=== PATIENT | female | born 1935 | race Caucasian/White ===

== ENCOUNTER → 2020-02-12 09:02 | Outpatient (BNVA) | payer MEDICARE, BC, SELFPAY | PROVIDERS: PCP Nurse Practitioner Family; Referring Provider Internal Medicine; Visit Provider Nurse Practitioner Adult Health | DX: G43.109 Migraine with aura, not intractable, without status migrainosus (principal); I10 Essential (primary) hypertension; J44.9 Chronic obstructive pulmonary disease, unspecified | CPT/HCPCS: 99204 ==

== ENCOUNTER → 2020-04-08 09:28 | Outpatient (BNVA) | payer MEDICARE, BC, SELFPAY | PROVIDERS: PCP Nurse Practitioner Family; Referring Provider Nurse Practitioner Family; Visit Provider Nurse Practitioner Adult Health | DX: G43.109 Migraine with aura, not intractable, without status migrainosus (principal) | CPT/HCPCS: 99213 ==

== ENCOUNTER → 2020-10-07 08:05 | Outpatient (BNVA) | payer MEDICARE, BC, SELFPAY | PROVIDERS: PCP Nurse Practitioner Family; Referring Provider Nurse Practitioner Family; Visit Provider Nurse Practitioner Adult Health | DX: G43.109 Migraine with aura, not intractable, without status migrainosus (principal); Z63.79 Other stressful life events affecting family and household | CPT/HCPCS: 99213; 99215 ==

== ENCOUNTER 2021-05-21 02:42 | Outpatient (CLI) | payer MEDICARE, BC, SELFPAY ==
[2021-05-21 13:21] LABS: Source Nasal/Nares
[2021-05-21 16:55] LABS: COVID-19 PCR Negative (Negative)
== END 2021-05-21 02:43 | disposition home or self-care (01) ==
LOC: LBO 02:42
PROVIDERS: PCP Internal Medicine; Visit Provider Ophthalmology
DX: Z20.822 Contact with and (suspected) exposure to COVID-19 (principal); Z01.818 Encounter for other preprocedural examination
CPT/HCPCS: 87635

== ENCOUNTER 2021-05-24 11:04 | Day surgery (SDC) | payer MEDICARE, BC, SELFPAY ==
--- NOTE | 2021-05-24 06:45 | W.PREOPHP ---
Date of service: 05/24/21 Assessment and Plan Assessment and plan (1) Cortical cataract of left eye: Status: Acute Assessment and plan: Visually significant cataract of the left eye, plan is for cataract extraction with lens implantation of the left eye. (2) Nuclear sclerotic cataract of left eye: Status: Acute Assessment and plan: Visually significant cataract of the left eye, plan is for cataract extraction with lens implantation of the left eye. History of Present Illness History of Present Illness Chief Complaint: Progressive decreased vision, left eye Narrative: Patient is an 85-year-old lady who has noted progressive decreased vision in her left eye, particularly at distance. She also has a hard time doing near work such as reading books, sewing, and using the computer. Review of Systems All systems reviewed & are unremarkable except as noted in HPI and below Musculoskeletal Musculoskeletal: Reports arthralgias and Reports joint swelling Neurologic Neurologic: Reports system reviewed and no additional complaints, except as documented Allergic/Immunologic Allergic/Immunologic: Reports system reviewed and no additional complaints, except as documented PFS Medical History Acquired hammer toe of right foot Atypical chest pain pt. says she has had full work up and states they have never found anything. Bunion Chronic sinusitis Claustrophobia Constipation Essential hypertension GERD (gastroesophageal reflux disease) Hearing loss Hx of chronic obstructive lung disease Hyperlipidemia Hypertension Incontinence of feces Insomnia Memory impairment Migraine headache with aura Obstructive sleep apnea Periodic limb movement disorder Rheumatoid arthritis Seasonal allergic rhinitis Small vessel disease, cerebrovascular Spinal stenosis, lumbar Surgical History History of orthopedic surgery Hx of breast surgery Family History Mother Heart disease Diabetes Hypertension Glaucoma Father Stroke Brother Alcohol abuse Diabetes Arthritis Liver disease Stroke Social History Smoking/Tobacco Use Status: Former Tobacco Use Quit Date: 09/04/89 Smoking risk assessment performed?: Yes Alcohol Intake: current Alcohol Intake frequency: a few times a month Drug use: Never Substance use type: does not use Household members: spouse Housing: house Number of Children: 2 What is your relationship status?: Panel score (0-1 are the most socially isolated patients): 1 Seatbelt use: always Do you feel safe at home: Yes Do you feel safe in your relationship?: Yes Meds Allergies and Home Medications Allergies Allergy/AdvReac Type Severity Reaction Status Date / Time azithromycin [From Zithromax] Allergy Intermediate Verified 05/21/21 13:43 Influenza Virus Vaccines Allergy Unverified 05/21/21 13:43 Macrolide Antibiotics Allergy Unverified 05/21/21 13:43 pneumococcal vaccine Allergy Unverified 05/21/21 13:43 Sulfa (Sulfonamide Allergy Unverified 05/21/21 13:43 Antibiotics) clindamycin AdvReac Intermediate joint pain Verified 05/21/21 13:43 lisinopril AdvReac Mild cough Verified 05/21/21 13:43 metoprolol AdvReac Wheezing Unverified 05/21/21 13:43 Home Medications Medication Instructions Recorded Confirmed Type acetaminophen [Tylenol Extra 1,000 mg PO Q4H PRN tab-cap 01/08/16 05/21/21 History Strength] amoxicillin 500 mg PO Q12H PRN tab-cap 01/08/16 05/21/21 History calcium carbonate-vitamin D3 1 ea PO DAILY tab-cap 01/08/16 05/24/21 History [Calcium 500 + D Tablet] dextran 70-hypromellose [Tears 15 ml OPHTHALMIC BID bottle 01/08/16 05/21/21 History Pure Drops] fluticasone propionate [Flonase 2 spry NS DAILY PRN bottle 01/08/16 05/21/21 History Allergy Relief] ipratropium-albuterol [Combivent 2 puff INHALATION QID PRN inhaler 01/08/16 05/21/21 History Respimat Inhaler] multivitamin [Daily Value] 1 ea PO DAILY tab 01/08/16 05/24/21 History olopatadine [Pataday] 1 drp OPHTHALMIC BID drp 01/08/16 05/21/21 History amlodipine 10 mg tablet 10 mg PO DAILY 02/10/20 05/24/21 History atorvastatin 20 mg tablet 20 mg PO DAILY 02/10/20 05/24/21 History carboxymethylcellulose 0.5 1 drp OP QHS 02/10/20 05/21/21 History %-glycerin 0.9 % eye drops clopidogrel 75 mg tablet 75 mg PO DAILY 02/10/20 05/24/21 History donepezil 5 mg tablet 5 mg PO DAILY 02/10/20 05/24/21 History gabapentin 100 mg capsule 100 mg PO DAILY PRN 02/10/20 05/24/21 History isosorbide mononitrate 60 mg 60 mg PO HS tab 02/10/20 05/24/21 History tablet,extended release 24 hr magnesium oxide 400 mg (241.3 mg 400 mg PO QHS tab 02/10/20 05/21/21 History magnesium) tablet metoprolol succinate 50 mg 50 mg PO QHS tab 02/10/20 05/24/21 History tablet,extended release 24 hr nitroglycerin 0.4 mg sublingual 0.4 mg SL Q5M PRN 02/10/20 05/21/21 History tablet sucralfate 1 gram tablet 1 gm PO DIRECTED tab 02/10/20 05/21/21 History hydroxychloroquine 200 mg tablet 200 mg PO DAILY tab-cap 10/07/20 05/24/21 History Exam Eyes General: appearance normal, both eyes and all related structures Visual Patricia: normal visual patricia by confrontation Alignment and Position: alignment normal Periorbital: periorbital findings normal Eyelids: eyelids normal Conjunctivae: conjunctivae normal Sclera: sclerae normal Cornea: corneas normal Pupils: PERRL EOM: EOM intact bilaterally Other: Slit-lamp examination reveals mild cortical opacities OU. Significant nuclear cataract is present in both eyes. Funduscopic examination reveals disc cupping of approximately 0.7 OD, 0.75 OS. Cups are deep. 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 Resp Auscultation: clear to auscultation bilaterally Cardio Rate: regular rate Rhythm: regular rhythm
--- NOTE | 2021-05-24 11:31 | ANES.PREOP_ITS ---
General Info Date of Service Date Performed: 05/24/21 Height: 5 ft 2 in Weight: 67.132 kg Body Mass Index (BMI): 27.1 Surgical Procedure: Operation Date: 05/24/21 14:40 Proposed Procedures Side Surgeon p Cataract Extraction with IOL Implant Left Luisito Samaniego MD Meds Allergies and Home Medications Allergies Allergy/AdvReac Type Severity Reaction Status Date / Time azithromycin [From Zithromax] Allergy Intermediate Verified 05/21/21 13:43 Influenza Virus Vaccines Allergy Unverified 05/21/21 13:43 Macrolide Antibiotics Allergy Unverified 05/21/21 13:43 pneumococcal vaccine Allergy Unverified 05/21/21 13:43 Sulfa (Sulfonamide Allergy Unverified 05/21/21 13:43 Antibiotics) clindamycin AdvReac Intermediate joint pain Verified 05/21/21 13:43 lisinopril AdvReac Mild cough Verified 05/21/21 13:43 metoprolol AdvReac Wheezing Unverified 05/21/21 13:43 Home Medication Medication Instructions Recorded acetaminophen [Tylenol Extra 1,000 mg PO Q4H PRN tab-cap 01/08/16 Strength] amoxicillin 500 mg PO Q12H PRN tab-cap 01/08/16 calcium carbonate-vitamin D3 1 ea PO DAILY tab-cap 01/08/16 [Calcium 500 + D Tablet] dextran 70-hypromellose [Tears 15 ml OPHTHALMIC BID bottle 01/08/16 Pure Drops] fluticasone propionate [Flonase 2 spry NS DAILY PRN bottle 01/08/16 Allergy Relief] ipratropium-albuterol [Combivent 2 puff INHALATION QID PRN inhaler 01/08/16 Respimat Inhaler] multivitamin [Daily Value] 1 ea PO DAILY tab 01/08/16 olopatadine [Pataday] 1 drp OPHTHALMIC BID drp 01/08/16 amlodipine 10 mg tablet 10 mg PO DAILY 02/10/20 atorvastatin 20 mg tablet 20 mg PO DAILY 02/10/20 carboxymethylcellulose 0.5 1 drp OP QHS 02/10/20 %-glycerin 0.9 % eye drops clopidogrel 75 mg tablet 75 mg PO DAILY 02/10/20 donepezil 5 mg tablet 5 mg PO DAILY 02/10/20 gabapentin 100 mg capsule 100 mg PO DAILY PRN 02/10/20 isosorbide mononitrate 60 mg 60 mg PO HS tab 02/10/20 tablet,extended release 24 hr magnesium oxide 400 mg (241.3 mg 400 mg PO QHS tab 02/10/20 magnesium) tablet metoprolol succinate 50 mg 50 mg PO QHS tab 02/10/20 tablet,extended release 24 hr nitroglycerin 0.4 mg sublingual 0.4 mg SL Q5M PRN 02/10/20 tablet sucralfate 1 gram tablet 1 gm PO DIRECTED tab 02/10/20 hydroxychloroquine 200 mg tablet 200 mg PO DAILY tab-cap 10/07/20 Current Visit Medications: Current Medications Generic Name Dose Route Start Last Admin Trade Name Freq PRN Reason Stop Dose Admin Acetaminophen 1,000 mg 05/24/21 06:00 Acetaminophen 500 Mg Tab PO Q4H PRN PRN Miscellaneous Medication 0 ml 05/24/21 06:00 Prednisolone 1%, Moxifloxacin 0.5%, Nepafenac 0.1% 5ml Btl OS DIRECTED [facility] Miscellaneous Medication 0 ml 05/24/21 06:00 Tropicam./Phenyleph. (1/2.5%) 5 Ml Btl OS DIRECTED CHRIS Tetracaine HCl 0 ml 05/24/21 06:00 Tetracaine 0.5% 4 Ml Btl OS DIRECTED CHRIS PFSH Active Problems Active Problems: Problem Status Onset Code Cortical cataract of left eye H26.9 Nuclear sclerotic cataract of left eye H25.12 Migraine headache with aura G43.109 Medical History Medical History Acquired hammer toe of right foot Atypical chest pain pt. says she has had full work up and states they have never found anything. Bunion Chronic sinusitis Claustrophobia Constipation Essential hypertension GERD (gastroesophageal reflux disease) Hearing loss Hx of chronic obstructive lung disease Hyperlipidemia Hypertension Incontinence of feces Insomnia Memory impairment Migraine headache with aura Obstructive sleep apnea Periodic limb movement disorder Rheumatoid arthritis Seasonal allergic rhinitis Small vessel disease, cerebrovascular Spinal stenosis, lumbar Surgical History Surgical History History of orthopedic surgery Hx of breast surgery Tobacco Smoking/Tobacco Use Status: Former Tobacco Use Alcohol Alcohol Intake: current Alcohol intake frequency: a few times a month Substance Use Substance use: Never Substance use type: does not use Vital Signs and Lab Results Lab Results Blood Type / Crossmatch: No Data to Display Complete Blood Count: No Data to Display Complete Metabolic Panel: No Data to Display Liver Function Panel: No Data to Display Coagulation Panel: No Data to Display Cardiac Panel: No Data to Display Arterial Blood Gas: No Data to Display Venous Blood Gas: No Data to Display Pancreas Panel: No Data to Display Thyroid Panel: No Data to Display Infectious Disease: Coronavirus (COVID-19)(PCR) Negative (Negative) 05/21/21 11:24 05/21/21 Coronavirus 2019 Source Nasal/Nares 05/21/21 11:24 05/21/21 Blood Cultures: No Data to Display Toxicology Panel: No Data to Display Imaging and Studies Imaging and Studies Stress Test Summary: 01/21/16 Stress results: The rate-pressure product for the peak heart rate and blood pressure was 25025dl Hg/min. Stress ECG: STRESS TEST ENDED IN 6 MINUTES & 1 SECOND, BECAUSE OF PT FATIGUE. MAX HR = 136. % OF TARGET = 96. PVC, COUPLET & 3 BEAT RUN SEEN DURING PEAK EXERCISE. ADEQUATE BP RESPONSE. ABOVE AVERAGE EXERCISE CAPACITY. METS ACHIEVED 8.82. CHEST PAINS 3/4 OUT OF 10 TO 6 OUT OF 10 DURING PEAK EXERCISE, THAT SUBSIDED BY 6 MINUTE RECOVERY. Beasley treadmill score: 6. This score predicts a low risk of cardiac events. Anesthesia Assessment and Plan Anesthesia History Personal History: No History of Anesthesia Complications Family History: No Family History of Anesthesia Complications Exercise Tolerance Exercise Tolerance: Metabolic Equivalents>4 Pertinent Negatives Pertinent Negatives: No Symptoms of GERD, No Major Cardiovascular Symptoms or Complaints, No Major Pulmonary Symptoms or Complaints and No History of CVA/TIA Cardiac & Pulmonary Exam Cardiac Exam: Normal S1/S2 Heart Sounds Pulmonary Exam: Clear Bilateral Breath Sounds Airway Exam Known Difficult Airway: No Mallampati Class: 2 Mouth Opening: Normal (> 3cm) Thyromental Distance: Greater than 3 cm Neck Range of Motion: Full ROM Neck Circumference: Normal Teeth Condition: Normal Dentition, Removable Dentures/Plates Upper and Removable Dentures/Plates Lower ASA Classification ASA Score: ASA 2 Emergency Case?: No NPO Status NPO Status: NPO Clears >2 hours, Solids >8 hours Anesthesia Plan Resuscitation Status: Full Code Anesthesia Technique: MAC Anesthesia Airway Planned: Natural Airway Monitors Used: Standard Monitors
[2021-05-24 11:38] VITALS: BP 140/58; PULSE 61; RESP 16; TEMP 36.7; O2SAT 98
[2021-05-24 11:52] VITALS: BMI 27.1
[2021-05-24] MEDS: Tropicam./Phenyleph. (1/2.5%) 5 ML BTL OS ×3 (11:58→12:08)
[2021-05-24] MEDS: Tetracaine 0.5% 4 ML BTL OS (12:44)
[2021-05-24] MEDS: Duovisc Viscoelastic System EACH 1 EACH (12:45)
[2021-05-24] MEDS: Balanced Salt Soln.-PLUS 500 ML BAG (12:45)
[2021-05-24] MEDS: Lidocaine 2% Jelly 6 ML SYR (12:46)
[2021-05-24] MEDS: Lidocaine 1% Pres-Free 5 ML VIAL (12:46)
[2021-05-24] MEDS: Povidone-Iodine Ophth 30 ML BTL (12:47)
[2021-05-24 13:12] VITALS: BP 156/79; PULSE 66; RESP 16; TEMP 36; O2SAT 97
--- NOTE | 2021-05-24 13:13 | W.ANESPOSTOP ---
Postoperative Evaluation Date, Time and Location Date Performed: 05/24/21 Time Performed: 13:13 Patient Location: Day Surgery Unit Vital Signs Most Recent Imported Vital Signs: Most Recent Vital Signs Temp Pulse Resp BP Pulse Ox 36.7 C 61 16 140/58 L 98 05/24/21 11:38 05/24/21 11:38 05/24/21 11:38 05/24/21 11:38 05/24/21 11:38 Most Recent Manually Entered Vital Signs: Adult Blood Pressure: 156/79 Heart Rate: 66 Respirations: 16 Oxygen Saturation (%): 97 Temperature (C): 36.4 C Pain Score (0-10 Scale): 0 Pain Score Most Recent Pain Score: Most Recent Pain Score Pain Level 0 05/24/21 11:38 Assessment Mental Status: Awake (Alert & Oriented to Patient Baseline) Airway and Respiratory Function: Patent airway with normal (patient baseline) respiratory exam Cardiovascular Function: Hemodynamically Stable Hydration Status: Adequately Hydrated Nausea & Vomiting: No Nausea or Vomiting Pain: Pt. Denies Any Pain Peripheral Nerve Block: Patient did not receive a nerve block
[2021-05-24 13:14] VITALS: BP 156/79; PULSE 66; RESP 16; TEMPC 36.4; O2SAT 97
--- NOTE | 2021-05-24 13:15 | W.PM.DSUDISC ---
Discharge Plan Disposition Patient Disposition: HOME Condition: Good Discharge Details Attending Provider: Luisito Samaniego Primary Care Provider: Carlos Zuñiga Home Meds and New Rx's Prescriptions: No Action multivitamin [Daily Value] 1 EACH tablet 1 ea PO DAILY RF: 0 acetaminophen [Tylenol Extra Strength] 500 MG tablet 1,000 mg PO Q4H PRN RF: 0 amoxicillin 500 MG tablet 500 mg PO Q12H PRNRF: 0 fluticasone propionate [Flonase Allergy Relief] 9.9 ML spray,suspension 2 spry NS DAILY PRNRF: 0 Tears Pure 15 ML drops 15 ml Ophthalmic BID RF: 0 olopatadine [Pataday] 2.5 ML drops 1 drp Ophthalmic BID RF: 0 calcium carbonate-vitamin D3 [Calcium 500 + D] 1 EACH tablet 1 ea PO DAILY RF: 0 Combivent Respimat 4 GM mist 2 puff Inhalation QID PRNRF: 0 amlodipine 10 mg tablet 10 mg PO DAILY RF: 0 atorvastatin 20 mg tablet 20 mg PO DAILY RF: 0 donepezil 5 mg tablet 5 mg PO DAILY RF: 0 gabapentin 100 mg capsule 100 mg PO DAILY PRNRF: 0 isosorbide mononitrate 60 mg tablet extended release 24 hr 60 mg PO HS RF: 0 magnesium oxide 400 mg (241.3 mg magnesium) tablet 400 mg PO QHS RF: 0 metoprolol succinate 50 mg tablet extended release 24 hr 50 mg PO QHS RF: 0 nitroglycerin 0.4 mg tablet, sublingual 0.4 mg SL Q5M PRNRF: 0 clopidogrel [Plavix] 75 mg tablet 75 mg PO DAILY RF: 0 Refresh Optive 0.5-0.9 % drops 1 drp OP QHS RF: 0 sucralfate 1 gram tablet 1 gm PO DIRECTED RF: 0 hydroxychloroquine [Plaquenil] 200 mg tablet 200 mg PO DAILY RF: 0 Discharge Instructions Stand Alone Forms: Post-op Topical Cataract Discharge Orders Discharge Orders: Discharge Order (Routine); Ordered 05/24/21 Ordered By: Luisito Samaniego DS: Diagnosis Discharge Diagnosis (1) Cortical cataract of left eye: Status: Resolved (2) Nuclear sclerotic cataract of left eye: Status: Resolved
--- NOTE | 2021-05-24 13:15 | W.PM.OP ---
Date of service: 05/24/21 Time of Service: 13:15 Operative Note Operative Note DATE OF PROCEDURE: 05/24/21 PRE-OP DIAGNOSIS: Nuclear/cortical cataract, left eye POST-OP DIAGNOSIS: same PROCEDURE: Cataract extraction by phacoemulsification with intraocular lens implantation, left eye, with pupillary expansion device SURGEON: Luisito Samaniego ANESTHESIA TYPE: Local By Surgeon and MAC Refer to Anesthesia Record ESTIMATED BLOOD LOSS: 0 PATHOLOGY: none sent COMPLICATIONS: None Patient was transported to: same day Patient's condition: stable Implants: [employer] / [employer] Tecnis [id number] Indications: Progressive decreased vision, left eye Procedure Description: CATARACT SURGERY OPERATIVE REPORT PREOPERATIVE DIAGNOSIS: 1. Nuclear/cortical cataract, left eye 2. Poorly dilating pupil, left eye POSTOPERATIVE DIAGNOSIS: Same OPERATION: 1. Cataract extraction using phacoemulsification with posterior chamber intraocular lens implant, left eye. 2. Pupillary dilation and iris stabilization using Malyugin Ring IOL; IOL Licensed Marine Engineer/Model: [employer] Silv[employer] / DAYO Tecnis [id number] IOL Power: + 23.0 diopters IOL Serial Number: [id number] Optic Diameter: 6.0 mm Haptic/Overall Diameter: 13.00 mm PHACO INFO: [employer] Vision System with OZil and Active [employer]uidics Cumulative Dispersed Energy (CDE): 16.47 seconds SURGEON: Luisito Samaniego MD, LILY ANESTHESIA: Monitored Anesthesia Care (MAC), with local sub-tenon's anesthetic infiltration COMPLICATIONS: None SPECIMENS: None INDICATIONS FOR PROCEDURE: The patient is an 86-year-old lady with history of diminished visual acuity in both eyes secondary to the development of bilateral nuclear and cortical cataract. She is significantly symptomatic that she desires cataract surgery and attempt to improve and maximize her vision. PROCEDURE: The correct surgical eye was identified and marked as the left eye and the pupil was dilated in the preoperative area using mydriatics, cycloplegics, and NSAIDS (except in aspirin allergic patients). The dilated pupil size was 4.5 mm. Oral sedation was administered in the form of an Imprimis MKO Melt (midazolam 3mg/ketamine 25mg/ondansetron 2mg). The patient was brought to the operating room where cardiopulmonary monitoring was instituted and surgical time-out was performed, confirming the correct operative eye and IOL power. Topical anesthesia was administered and ophthalmic povidone-iodine 5% was instilled into the conjunctival fornices. Lidocaine gel was applied to the cornea and the mickey-ocular area was prepped with Betadine 10% solution and draped in the usual sterile fashion for intraocular surgery, including an aperture drape. A Tegaderm transparent film dressing was cut in half and used to cover the lashes and lid margins. Care was taken to sequester the lashes and lid margins under the Tegaderm dressing. A lid speculum was placed between the lids of the operative eye and the Anne-Flora operating microscope was maneuvered into position. Missy scissors were then used to make a conjunctival buttonhole approximately 6mm posterior to the limbus in the inferonasal quadrant. Blunt dissection was carried out to expose bare sclera, and a blunt-tipped sub-tenon?s anesthesia cannula was introduced and passed posteriorly along the globe where non-preserved plain lidocaine was injected into posterior sub-Tenon?s space. A sideport knife was used to make a paracentesis port superiorly/superiortemporally. Intraocular phenylephrine/lidocaine was injected into the anterior chamber. The anterior chamber was then filled with viscoelastic. A 2.4mm keratome knife was used to create a half-thickness groove at the limbus and then to construct a three-plane near-clear corneal tunnel extending 2.0mm into clear cornea at the temporal position. A 7.0 mm Malyugin Ring was then inserted into the pupillary space and engaged with the Kuglen hook. A flap was raised on the anterior capsule and capsulorhexis forceps were used to complete a continuous curvilinear capsulorhexis of 5.5 mm. Balanced salt solution was then used to perform cortical cleaving hydrodissection and nuclear hydrodelineation until the lens could be freely rotated within the capsular bag. The lens nucleus was then disassembled and removed within the capsular bag and iris plane using phacoemulsification. Residual cortical material was removed using the 45-degree angled silicone I/A tip with 0.3mm port. The posterior capsule was carefully polished to remove as much residual lens epithelial cells as safely possible. The capsular bag was then inflated and the anterior chamber deepened with viscoelastic. The lens implant described above was inserted into the capsular bag using the DAYO [place] Injector. A Kuglen hook was used to dial the IOL into position. The Malyugin Ring was removed in the reverse order of its insertion. Residual viscoelastic was then removed first from posterior to the IOL, then from the anterior chamber using the I/A handpiece. The lens implant was noted to center nicely within the capsular bag. The incisions were stromally hydrated, and the anterior chamber was reformed using BSS. Then 0.5cc of moxifloxacin 1.0mg/ml were injected into the capsular bag and anterior chamber. The incisions were checked with a Weck spear and found to be secure. Several drops of ophthalmic povidone-iodine 5% were then applied to the eye followed by two drops of Imprimis combination prednisolone/moxifloxacin/nepafenac solution. The drapes were removed and a clear plastic protective eye shield was placed over the eye. The patient was then returned to Same Day Surgery in stable condition.
== END 2021-05-24 13:40 | disposition home or self-care (01) ==
PROVIDERS: PCP Internal Medicine; Visit Provider Ophthalmology
PROC: (CPT 66982; principal; 2021-05-24 14:30)
DX: H25.12 Age-related nuclear cataract, left eye (principal); H57.03 Miosis
CPT/HCPCS: 66982; V2632

== ENCOUNTER 2021-06-04 01:58 | Outpatient (CLI) | payer MEDICARE, BC, SELFPAY ==
[2021-06-04 12:50] LABS: Source Nasal/Nares
[2021-06-04 15:32] LABS: COVID-19 PCR Negative (Negative)
== END 2021-06-04 01:59 | disposition home or self-care (01) ==
LOC: LBO 01:59
PROVIDERS: PCP Internal Medicine; Visit Provider Ophthalmology
DX: Z20.822 Contact with and (suspected) exposure to COVID-19 (principal); Z01.818 Encounter for other preprocedural examination
CPT/HCPCS: 87635

== ENCOUNTER 2021-06-07 10:30 | Day surgery (SDC) | payer MEDICARE, BC, SELFPAY ==
--- NOTE | 2021-06-07 06:59 | W.PIPPEYE ---
History of Present Illness History of Present Illness Chief Complaint: Progressive decreased vision, right eye Narrative: The patient is an 85-year-old lady with history of progressive decreased vision in both eyes, left eye worse than right. She has a history of bilateral cataracts, left eye worse than right as well as borderline glaucoma. She underwent cataract surgery in the left eye on 05/24/2021. She now presents for cataract surgery in the right eye. COUNT INCLUDES THE [facility] Medical History (Updated 06/05/21 @ 10:21 by Luisito Samaniego MD) Acquired hammer toe of right foot Atypical chest pain pt. says she has had full work up and states they have never found anything. Bunion Chronic sinusitis Claustrophobia Constipation Essential hypertension GERD (gastroesophageal reflux disease) Hearing loss Hx of chronic obstructive lung disease Hyperlipidemia Hypertension Incontinence of feces Insomnia Memory impairment Migraine headache with aura Obstructive sleep apnea Periodic limb movement disorder Rheumatoid arthritis Seasonal allergic rhinitis Small vessel disease, cerebrovascular Spinal stenosis, lumbar Surgical History History of orthopedic surgery Hx of breast surgery Family History Mother Heart disease Diabetes Hypertension Glaucoma Father Stroke Brother Alcohol abuse Diabetes Arthritis Liver disease Stroke Social History Smoking/Tobacco Use Status: Former Tobacco Use Quit Date: 09/04/89 Smoking risk assessment performed?: Yes Alcohol Intake: current Alcohol Intake frequency: a few times a month Drug use: Never Substance use type: does not use Household members: spouse Housing: house Number of Children: 2 What is your relationship status?: Panel score (0-1 are the most socially isolated patients): 1 Seatbelt use: always Do you feel safe at home: Yes Do you feel safe in your relationship?: Yes Meds Allergies and Home Medications Allergies Allergy/AdvReac Type Severity Reaction Status Date / Time azithromycin [From Zithromax] Allergy Intermediate Verified 06/04/21 07:27 Influenza Virus Vaccines Allergy Unverified 06/04/21 07:27 Macrolide Antibiotics Allergy Unverified 06/04/21 07:27 pneumococcal vaccine Allergy Unverified 06/04/21 07:27 Sulfa (Sulfonamide Allergy Unverified 06/04/21 07:27 Antibiotics) clindamycin AdvReac Intermediate joint pain Verified 06/04/21 07:27 lisinopril AdvReac Mild cough Verified 06/04/21 07:27 metoprolol AdvReac Wheezing Unverified 06/04/21 07:27 Home Medications Medication Instructions Recorded Confirmed Type acetaminophen [Tylenol Extra 1,000 mg PO Q4H PRN tab-cap 01/08/16 06/03/21 History Strength] amoxicillin 500 mg PO Q12H PRN tab-cap 01/08/16 06/03/21 History calcium carbonate-vitamin D3 1 ea PO DAILY tab-cap 01/08/16 06/03/21 History [Calcium 500 + D Tablet] dextran 70-hypromellose [Tears 15 ml OPHTHALMIC BID bottle 01/08/16 06/03/21 History Pure Drops] fluticasone propionate [Flonase 2 spry NS DAILY PRN bottle 01/08/16 06/03/21 History Allergy Relief] ipratropium-albuterol [Combivent 2 puff INHALATION QID PRN inhaler 01/08/16 06/03/21 History Respimat Inhaler] multivitamin [Daily Value] 1 ea PO DAILY tab 01/08/16 06/03/21 History olopatadine [Pataday] 1 drp OPHTHALMIC BID drp 01/08/16 06/03/21 History amlodipine 10 mg tablet 10 mg PO DAILY 02/10/20 06/03/21 History atorvastatin 20 mg tablet 20 mg PO DAILY 02/10/20 06/03/21 History carboxymethylcellulose 0.5 1 drp OP QHS 02/10/20 06/03/21 History %-glycerin 0.9 % eye drops clopidogrel 75 mg tablet 75 mg PO DAILY 02/10/20 06/03/21 History donepezil 5 mg tablet 5 mg PO DAILY 02/10/20 06/03/21 History gabapentin 100 mg capsule 100 mg PO DAILY PRN 02/10/20 06/03/21 History isosorbide mononitrate 60 mg 60 mg PO HS tab 02/10/20 06/03/21 History tablet,extended release 24 hr magnesium oxide 400 mg (241.3 mg 400 mg PO QHS tab 02/10/20 06/03/21 History magnesium) tablet metoprolol succinate 50 mg 50 mg PO QHS tab 02/10/20 06/03/21 History tablet,extended release 24 hr nitroglycerin 0.4 mg sublingual 0.4 mg SL Q5M PRN 02/10/20 06/03/21 History tablet sucralfate 1 gram tablet 1 gm PO DIRECTED tab 02/10/20 06/03/21 History hydroxychloroquine 200 mg tablet 200 mg PO DAILY tab-cap 10/07/20 06/03/21 History Exam OCULAR EXAM:: Slit-lamp examination reveals corrected visual acuity of 20/30 OD, uncorrected vision of 20/20 OS. A well-positioned PCIOL is present OS with clear posterior capsule and a clear cornea. A moderate nuclear and cortical cataract is present in the right eye. Disc cupping of 0.7 OU. The macula and peripheral retina are normal. Assessment and Plan Assessment and plan (1) Cortical cataract of right eye: Status: Acute Assessment and plan: Visually symptomatic cortical cataract of the right eye. Plan is for cataract extraction with lens implantation of the right eye. (2) Nuclear sclerotic cataract of right eye: Status: Acute Assessment and plan: Visually symptomatic nuclear cataract of the right eye. Plan is for cataract extraction with lens implantation of the right eye. Note: NOTE:: The details of the planned surgery, including the risks, indications,limitations,expectations,outcome and possible complications were explained to the patient. The patient understands the complications including, but not limited to: infection, hemorrhage, posterior dislocation of the lens or nuclear fragments which may require the intervention of a vitreoretinal surgeon, possible loss of the eye, or from anesthetic complications. The patient has been made aware of the option of not having surgery, that vision following surgery may not be equal to that prior to surgery, and that the planned surgery may not achieve the intended results. Following this discussion, which the patient appeared to understand, the patient wishes to proceed with cataract surgery with lens implantation of the affected eye to improve and maximize vision.
--- NOTE | 2021-06-07 07:05 | W.PREOPHP ---
Date of service: 06/07/21 Assessment and Plan Assessment and plan (1) Cortical cataract of right eye: Status: Acute Assessment and plan: Symptomatic cortical cataract of the right eye. Plan is for cataract extraction with lens implantation of the right eye. (2) Nuclear sclerotic cataract of right eye: Status: Acute Assessment and plan: Symptomatic nuclear cataract of the right eye. Plan is for cataract extraction with lens implantation of the right eye. History of Present Illness History of Present Illness Chief Complaint: Decreased vision, right eye Narrative: The patient is an 85-year-old lady with history of progressive decreased vision in both eyes, left eye worse than right. She is noted to have moderate bilateral nuclear and cortical cataracts. She has already undergone cataract surgery in the left eye on 05/24/2021 and is doing well postoperatively. She now presents for cataract surgery in the left eye. [facility] Medical History (Updated 06/05/21 @ 10:21 by Luisito Samaniego MD) Acquired hammer toe of right foot Atypical chest pain pt. says she has had full work up and states they have never found anything. Bunion Chronic sinusitis Claustrophobia Constipation Essential hypertension GERD (gastroesophageal reflux disease) Hearing loss Hx of chronic obstructive lung disease Hyperlipidemia Hypertension Incontinence of feces Insomnia Memory impairment Migraine headache with aura Obstructive sleep apnea Periodic limb movement disorder Rheumatoid arthritis Seasonal allergic rhinitis Small vessel disease, cerebrovascular Spinal stenosis, lumbar Surgical History History of orthopedic surgery Hx of breast surgery Family History Mother Heart disease Diabetes Hypertension Glaucoma Father Stroke Brother Alcohol abuse Diabetes Arthritis Liver disease Stroke Social History Smoking/Tobacco Use Status: Former Tobacco Use Quit Date: 09/04/89 Smoking risk assessment performed?: Yes Alcohol Intake: current Alcohol Intake frequency: a few times a month Drug use: Never Substance use type: does not use Household members: spouse Housing: house Number of Children: 2 What is your relationship status?: Panel score (0-1 are the most socially isolated patients): 1 Seatbelt use: always Do you feel safe at home: Yes Do you feel safe in your relationship?: Yes Meds Allergies and Home Medications Allergies Allergy/AdvReac Type Severity Reaction Status Date / Time azithromycin [From Zithromax] Allergy Intermediate Verified 06/04/21 07:27 Influenza Virus Vaccines Allergy Unverified 06/04/21 07:27 Macrolide Antibiotics Allergy Unverified 06/04/21 07:27 pneumococcal vaccine Allergy Unverified 06/04/21 07:27 Sulfa (Sulfonamide Allergy Unverified 06/04/21 07:27 Antibiotics) clindamycin AdvReac Intermediate joint pain Verified 06/04/21 07:27 lisinopril AdvReac Mild cough Verified 06/04/21 07:27 metoprolol AdvReac Wheezing Unverified 06/04/21 07:27 Home Medications Medication Instructions Recorded Confirmed Type acetaminophen [Tylenol Extra 1,000 mg PO Q4H PRN tab-cap 01/08/16 06/03/21 History Strength] amoxicillin 500 mg PO Q12H PRN tab-cap 01/08/16 06/03/21 History calcium carbonate-vitamin D3 1 ea PO DAILY tab-cap 01/08/16 06/03/21 History [Calcium 500 + D Tablet] dextran 70-hypromellose [Tears 15 ml OPHTHALMIC BID bottle 01/08/16 06/03/21 History Pure Drops] fluticasone propionate [Flonase 2 spry NS DAILY PRN bottle 01/08/16 06/03/21 History Allergy Relief] ipratropium-albuterol [Combivent 2 puff INHALATION QID PRN inhaler 01/08/16 06/03/21 History Respimat Inhaler] multivitamin [Daily Value] 1 ea PO DAILY tab 01/08/16 06/03/21 History olopatadine [Pataday] 1 drp OPHTHALMIC BID drp 01/08/16 06/03/21 History amlodipine 10 mg tablet 10 mg PO DAILY 02/10/20 06/03/21 History atorvastatin 20 mg tablet 20 mg PO DAILY 02/10/20 06/03/21 History carboxymethylcellulose 0.5 1 drp OP QHS 02/10/20 06/03/21 History %-glycerin 0.9 % eye drops clopidogrel 75 mg tablet 75 mg PO DAILY 02/10/20 06/03/21 History donepezil 5 mg tablet 5 mg PO DAILY 02/10/20 06/03/21 History gabapentin 100 mg capsule 100 mg PO DAILY PRN 02/10/20 06/03/21 History isosorbide mononitrate 60 mg 60 mg PO HS tab 02/10/20 06/03/21 History tablet,extended release 24 hr magnesium oxide 400 mg (241.3 mg 400 mg PO QHS tab 02/10/20 06/03/21 History magnesium) tablet metoprolol succinate 50 mg 50 mg PO QHS tab 02/10/20 06/03/21 History tablet,extended release 24 hr nitroglycerin 0.4 mg sublingual 0.4 mg SL Q5M PRN 02/10/20 06/03/21 History tablet sucralfate 1 gram tablet 1 gm PO DIRECTED tab 02/10/20 06/03/21 History hydroxychloroquine 200 mg tablet 200 mg PO DAILY tab-cap 10/07/20 06/03/21 History Exam Eyes Other: Corrected visual acuity measures 20/30 in the right eye. Uncorrected visual acuity is 2020 in the left eye. Slit-lamp examination reveals moderate cortical with significant nuclear cataract of the right eye. A well-positioned PCIOL is present OS with clear cornea and posterior capsule. Disc cupping is approximately 0.7 OU with normal macula and peripheral retina. Resp Effort & Inspection: normal respiratory effort Auscultation: clear to auscultation bilaterally Cardio Rate: regular rate Rhythm: regular rhythm
[2021-06-07 10:49] VITALS: BP 140/65; PULSE 68; RESP 16; TEMP 36.6; O2SAT 98
[2021-06-07] MEDS: Tropicam./Phenyleph. (1/2.5%) 5 ML BTL OD ×3 (11:02→11:12)
--- NOTE | 2021-06-07 11:21 | ANES.PREOP_ITS ---
General Info Date of Service Date Performed: 06/07/21 Height: 5 ft 2 in Weight: 66 kg Body Mass Index (BMI): 26.6 Surgical Procedure: Operation Date: 06/07/21 13:40 Proposed Procedures Side Surgeon p Cataract Extraction with IOL Implant Right Luisito Samaniego MD Meds Allergies and Home Medications Allergies Allergy/AdvReac Type Severity Reaction Status Date / Time azithromycin [From Zithromax] Allergy Intermediate Verified 06/04/21 07:27 Influenza Virus Vaccines Allergy Unverified 06/04/21 07:27 Macrolide Antibiotics Allergy Unverified 06/04/21 07:27 pneumococcal vaccine Allergy Unverified 06/04/21 07:27 Sulfa (Sulfonamide Allergy Unverified 06/04/21 07:27 Antibiotics) clindamycin AdvReac Intermediate joint pain Verified 06/04/21 07:27 lisinopril AdvReac Mild cough Verified 06/04/21 07:27 metoprolol AdvReac Wheezing Unverified 06/04/21 07:27 Home Medication Medication Instructions Recorded acetaminophen [Tylenol Extra 1,000 mg PO Q4H PRN tab-cap 01/08/16 Strength] amoxicillin 500 mg PO Q12H PRN tab-cap 01/08/16 calcium carbonate-vitamin D3 1 ea PO DAILY tab-cap 01/08/16 [Calcium 500 + D Tablet] dextran 70-hypromellose [Tears 15 ml OPHTHALMIC BID bottle 01/08/16 Pure Drops] fluticasone propionate [Flonase 2 spry NS DAILY PRN bottle 01/08/16 Allergy Relief] ipratropium-albuterol [Combivent 2 puff INHALATION QID PRN inhaler 01/08/16 Respimat Inhaler] multivitamin [Daily Value] 1 ea PO DAILY tab 01/08/16 olopatadine [Pataday] 1 drp OPHTHALMIC BID drp 01/08/16 amlodipine 10 mg tablet 10 mg PO DAILY 02/10/20 atorvastatin 20 mg tablet 20 mg PO DAILY 02/10/20 carboxymethylcellulose 0.5 1 drp OP QHS 02/10/20 %-glycerin 0.9 % eye drops clopidogrel 75 mg tablet 75 mg PO DAILY 02/10/20 donepezil 5 mg tablet 5 mg PO DAILY 02/10/20 gabapentin 100 mg capsule 100 mg PO DAILY PRN 02/10/20 isosorbide mononitrate 60 mg 60 mg PO HS tab 02/10/20 tablet,extended release 24 hr magnesium oxide 400 mg (241.3 mg 400 mg PO QHS tab 02/10/20 magnesium) tablet metoprolol succinate 50 mg 50 mg PO QHS tab 02/10/20 tablet,extended release 24 hr nitroglycerin 0.4 mg sublingual 0.4 mg SL Q5M PRN 02/10/20 tablet sucralfate 1 gram tablet 1 gm PO DIRECTED tab 02/10/20 hydroxychloroquine 200 mg tablet 200 mg PO DAILY tab-cap 10/07/20 Current Visit Medications: Current Medications Generic Name Dose Route Start Last Admin Trade Name Freq PRN Reason Stop Dose Admin Acetaminophen 1,000 mg 06/07/21 06:00 Acetaminophen 500 Mg Tab PO Q4H PRN PRN Miscellaneous Medication 0 ml 06/07/21 06:00 Prednisolone 1%, Moxifloxacin 0.5%, Nepafenac 0.1% 5ml Btl OD DIRECTED [facility] Miscellaneous Medication 0 ml 06/07/21 06:00 06/07/21 11:12 Tropicam./Phenyleph. (1/2.5%) 5 Ml Btl OD 1 drp DIRECTED CHRIS Administration Tetracaine HCl 0 ml 06/07/21 06:00 Tetracaine 0.5% 4 Ml Btl OD DIRECTED CHRIS PFSH Active Problems Active Problems: Problem Status Onset Code Cortical cataract of right eye H26.9 Nuclear sclerotic cataract of right eye H25.11 Cortical cataract of left eye H26.9 Nuclear sclerotic cataract of left eye H25.12 Migraine headache with aura G43.109 Medical History Medical History (Updated 06/05/21 @ 10:21 by Luisito Samaniego MD) Acquired hammer toe of right foot Atypical chest pain pt. says she has had full work up and states they have never found anything. Bunion Chronic sinusitis Claustrophobia Constipation Essential hypertension GERD (gastroesophageal reflux disease) Hearing loss Hx of chronic obstructive lung disease Hyperlipidemia Hypertension Incontinence of feces Insomnia Memory impairment Migraine headache with aura Obstructive sleep apnea Periodic limb movement disorder Rheumatoid arthritis Seasonal allergic rhinitis Small vessel disease, cerebrovascular Spinal stenosis, lumbar Surgical History Surgical History History of orthopedic surgery Hx of breast surgery Tobacco Smoking/Tobacco Use Status: Former Tobacco Use Alcohol Alcohol Intake: current Alcohol intake frequency: a few times a month Substance Use Substance use: Never Substance use type: does not use Vital Signs and Lab Results Vital Signs Most Recent Vital Signs in EMR: Most Recent Vital Signs Temp Pulse Resp BP Pulse Ox 36.6 C 68 16 140/65 98 06/07/21 10:49 06/07/21 10:49 06/07/21 10:49 06/07/21 10:49 06/07/21 10:49 Lab Results Blood Type / Crossmatch: No Data to Display Complete Blood Count: No Data to Display Complete Metabolic Panel: No Data to Display Liver Function Panel: No Data to Display Coagulation Panel: No Data to Display Cardiac Panel: No Data to Display Arterial Blood Gas: No Data to Display Venous Blood Gas: No Data to Display Pancreas Panel: No Data to Display Thyroid Panel: No Data to Display Infectious Disease: Coronavirus (COVID-19)(PCR) Negative (Negative) 06/04/21 10:35 06/04/21 Coronavirus 2019 Source Nasal/Nares 06/04/21 10:35 06/04/21 Blood Cultures: No Data to Display Toxicology Panel: No Data to Display Imaging and Studies Imaging and Studies Stress Test Summary: 01/21/16 Stress results: The rate-pressure product for the peak heart rate and blood pressure was 32035oq Hg/min. Stress ECG: STRESS TEST ENDED IN 6 MINUTES & 1 SECOND, BECAUSE OF PT FATIGUE. MAX HR = 136. % OF TARGET = 96. PVC, COUPLET & 3 BEAT RUN SEEN DURING PEAK EXERCISE. ADEQUATE BP RESPONSE. ABOVE AVERAGE EXERCISE CAPACITY. METS ACHIEVED 8.82. CHEST PAINS 3/4 OUT OF 10 TO 6 OUT OF 10 DURING PEAK EXERCISE, THAT SUBSIDED BY 6 MINUTE RECOVERY. Beasley treadmill score: 6. This score predicts a low risk of cardiac events. Anesthesia Assessment and Plan Anesthesia History Personal History: No History of Anesthesia Complications Family History: No Family History of Anesthesia Complications Exercise Tolerance Exercise Tolerance: Metabolic Equivalents>4 Pertinent Negatives Pertinent Negatives: No Symptoms of GERD and No Major Pulmonary Symptoms or Complaints Cardiac & Pulmonary Exam Cardiac Exam: Normal S1/S2 Heart Sounds Pulmonary Exam: Clear Bilateral Breath Sounds Airway Exam Known Difficult Airway: No Mallampati Class: 2 Mouth Opening: Normal (> 3cm) Thyromental Distance: Greater than 3 cm Neck Range of Motion: Full ROM Neck Circumference: Normal Teeth Condition: Normal Dentition, Removable Dentures/Plates Upper and Removable Dentures/Plates Lower ASA Classification ASA Score: ASA 3 Emergency Case?: No NPO Status NPO Status: NPO Clears >2 hours, Solids >8 hours Anesthesia Plan Resuscitation Status: Full Code Anesthesia Technique: MAC Anesthesia Airway Planned: Natural Airway Monitors Used: Standard Monitors
[2021-06-07 11:33] VITALS: BMI 26.6
[2021-06-07] MEDS: Tetracaine 0.5% 4 ML BTL OD (11:59)
[2021-06-07] MEDS: Balanced Salt Soln.-PLUS 500 ML BAG (12:00)
[2021-06-07] MEDS: Lidocaine 1% Pres-Free 5 ML VIAL (12:01)
[2021-06-07] MEDS: Duovisc Viscoelastic System EACH 1 EACH (12:01)
[2021-06-07] MEDS: Lidocaine 2% Jelly 6 ML SYR (12:02)
[2021-06-07] MEDS: Povidone-Iodine Ophth 30 ML BTL (12:02)
[2021-06-07 12:13] VITALS: BP 151/62; PULSE 74; RESP 16; TEMP 36.3; O2SAT 98
--- NOTE | 2021-06-07 12:14 | W.PM.OP ---
Date of service: 06/07/21 Time of Service: 12:15 Operative Note Operative Note DATE OF PROCEDURE: 06/07/21 PRE-OP DIAGNOSIS: Nuclear/cortical cataract, right eye POST-OP DIAGNOSIS: same PROCEDURE: Cataract extraction using phacoemulsification with intraocular lens implant, right eye SURGEON: Luisito Samaniego ANESTHESIA TYPE: Local By Surgeon and MAC Refer to Anesthesia Record ESTIMATED BLOOD LOSS: 0 PATHOLOGY: none sent COMPLICATIONS: None Patient was transported to: same day Patient's condition: stable Implants: [employer] Silv[employer]/DAYO Tecnis [id number] Indications: Progressive visual loss due to cataract, right eye Procedure Description: CATARACT SURGERY OPERATIVE REPORT PREOPERATIVE DIAGNOSIS: 1. Nuclear/cortical cataract, right eye POSTOPERATIVE DIAGNOSIS: Same OPERATION: 1. Cataract extraction using phacoemulsification with posterior chamber intraocular lens implant, right eye. IOL: IOL Inspector Barrel/Model: Silv[employer] Silv[employer] / DAYO Tecnis [id number] IOL Power: + 23.0 diopters IOL Serial Number: [id number] Optic Diameter: 6.0mm Haptic/Overall Diameter: 13.0mm PHACO INFO: [employer] Vision System with OZil and Active [employer]uidics Cumulative Dispersed Energy (CDE): 13.47 seconds SURGEON: Luisito Samaniego MD, LILY ANESTHESIA: Monitored Anesthesia Care (MAC), with local sub-tenon's anesthetic infiltration COMPLICATIONS: None SPECIMENS: None INDICATIONS FOR PROCEDURE: The patient is an 86-year-old lady with history of diminished visual acuity in both eyes secondary to the development of bilateral cataracts. She has already undergone cataract surgery in the left eye and is doing well postoperatively. She now presents for cataract surgery in the right eye. PROCEDURE: The correct surgical eye was identified and marked as the right eye and the pupil was dilated in the preoperative area using mydriatics and cycloplegics. The dilated pupil size was 5.5 mm. Oral sedation was administered in the form of an Imprimis MKO Melt (midazolam 3mg/ketamine 25mg/ondansetron 2mg). The patient was brought to the operating room where cardiopulmonary monitoring was instituted and surgical time-out was performed, confirming the correct operative eye and IOL power. Topical anesthesia was administered and ophthalmic povidone-iodine 5% was instilled into the conjunctival fornices. Lidocaine gel was applied to the cornea and the mickey-ocular area was prepped with Betadine 10% solution and draped in the usual sterile fashion for intraocular surgery, including an aperture drape. A Tegaderm transparent film dressing was cut in half and used to cover the lashes and lid margins. Care was taken to sequester the lashes and lid margins under the Tegaderm dressing. A lid speculum was placed between the lids of the operative eye and the Anne-Flora operating microscope was maneuvered into position. Missy scissors were then used to make a conjunctival buttonhole approximately 6mm posterior to the limbus in the inferonasal quadrant. Blunt dissection was carried out to expose bare sclera, and a blunt-tipped sub-tenon?s anesthesia cannula was introduced and passed posteriorly along the globe where non-preserved plain lidocaine was injected into posterior sub-Tenon?s space. A sideport knife was used to make a paracentesis port inferotemporally. Intraocular phenylephrine/lidocaine was injected into the anterior chamber. The anterior chamber was filled with viscoelastic. A 2.4mm keratome knife was used to create a half-thickness groove at the limbus and then to construct a three-plane near-clear corneal tunnel extending 2.0mm into clear cornea superiortemporally. A flap was raised on the anterior capsule and capsulorhexis forceps were used to complete a continuous curvilinear capsulorhexis of 5.0 mm. Balanced salt solution was then used to perform cortical cleaving hydrodissection and nuclear hydrodelineation until the lens could be freely rotated within the capsular bag. The lens nucleus was then disassembled and removed within the capsular bag and iris plane using phacoemulsification. Residual cortical material was removed using the I/A handpiece. The posterior capsule was carefully polished to remove as much residual lens epithelial cells as safely possible. The capsular bag was then inflated and the anterior chamber deepened with viscoelastic. The lens implant described above was inserted into the capsular bag using the DAYO [place] Injector. A Kuglen hook was used to dial the IOL into position. Residual viscoelastic was then removed first from posterior to the IOL, then from the anterior chamber using the I/A handpiece. The lens implant was noted to center nicely within the capsular bag. The incisions were stromally hydrated, and the anterior chamber was reformed using BSS. Then 0.5cc of moxifloxacin 1.0mg/ml were injected into the capsular bag and anterior chamber. The incisions were checked with a Weck spear and found to be secure. Several drops of ophthalmic povidone-iodine 5% were then applied to the eye followed by two drops of Imprimis combination prednisolone/moxifloxacin/nepafenac solution. The drapes were removed and a clear plastic protective eye shield was placed over the eye. The patient was then returned to Same Day Surgery in stable condition.
--- NOTE | 2021-06-07 12:15 | W.ANESPOSTOP ---
Postoperative Evaluation Date, Time and Location Date Performed: 06/07/21 Time Performed: 12:15 Patient Location: Day Surgery Unit Vital Signs Most Recent Imported Vital Signs: Most Recent Vital Signs Temp Pulse Resp BP Pulse Ox 36.6 C 68 16 140/65 98 06/07/21 10:49 06/07/21 10:49 06/07/21 10:49 06/07/21 10:49 06/07/21 10:49 Most Recent Manually Entered Vital Signs: Adult Blood Pressure: 151/62 Heart Rate: 80 Respirations: 12 Oxygen Saturation (%): 98 Temperature (C): 36.3 C Pain Score (0-10 Scale): 0 Pain Score Most Recent Pain Score: Most Recent Pain Score Pain Level 0 06/07/21 10:49 Assessment Mental Status: Awake (Alert & Oriented to Patient Baseline) Airway and Respiratory Function: Patent airway with normal (patient baseline) respiratory exam Cardiovascular Function: Hemodynamically Stable Hydration Status: Adequately Hydrated Nausea & Vomiting: No Nausea or Vomiting Pain: Pt. Denies Any Pain Peripheral Nerve Block: Patient did not receive a nerve block
[2021-06-07 12:16] VITALS: BP 151/62; PULSE 80; RESP 12; TEMPC 36.3; O2SAT 98
== END 2021-06-07 12:55 | disposition home or self-care (01) ==
LOC: SUR 10:30
PROVIDERS: PCP Internal Medicine; Visit Provider Ophthalmology
PROC: (CPT 66984; principal; 2021-06-07 13:30)
DX: H25.11 Age-related nuclear cataract, right eye (principal); G47.33 Obstructive sleep apnea (adult) (pediatric); I10 Essential (primary) hypertension; K21.9 Gastro-esophageal reflux disease without esophagitis
CPT/HCPCS: 66984; V2632

== ENCOUNTER → 2022-04-20 13:29 | Outpatient (BNVA) | payer MEDICARE, BC, SELFPAY | PROVIDERS: PCP Internal Medicine; Referring Provider Internal Medicine; Visit Provider Nurse Practitioner Adult Health | DX: G43.109 Migraine with aura, not intractable, without status migrainosus (principal); G31.84 Mild cognitive impairment of uncertain or unknown etiology | CPT/HCPCS: 99213; 99214 ==

== ENCOUNTER → 2022-06-22 09:18 | Outpatient (BNVA) | payer MEDICARE, BC, SELFPAY | PROVIDERS: PCP Internal Medicine; Referring Provider Internal Medicine; Visit Provider Nurse Practitioner Adult Health | DX: G31.84 Mild cognitive impairment of uncertain or unknown etiology (principal); G43.109 Migraine with aura, not intractable, without status migrainosus | CPT/HCPCS: 99213; 99214 ==

== ENCOUNTER → 2022-12-21 10:30 | Outpatient (BNVA) | payer MEDICARE, SELFPAY | PROVIDERS: PCP Internal Medicine; Referring Provider Internal Medicine; Visit Provider Nurse Practitioner Adult Health | DX: G43.109 Migraine with aura, not intractable, without status migrainosus (principal); G31.84 Mild cognitive impairment of uncertain or unknown etiology; R05.9 Cough, unspecified; R07.9 Chest pain, unspecified | CPT/HCPCS: 99213; 99214 ==

== ENCOUNTER → 2023-12-21 09:52 | Outpatient (BNVA) | payer MEDICARE, SELFPAY | PROVIDERS: PCP Family Medicine; Referring Provider Internal Medicine; Visit Provider Nurse Practitioner Adult Health | DX: G31.84 Mild cognitive impairment of uncertain or unknown etiology (principal) | CPT/HCPCS: 99215 ==

== ENCOUNTER → 2024-03-21 13:28 | Outpatient (BNVA) | payer MEDICARE, SELFPAY | PROVIDERS: PCP Family Medicine; Referring Provider Family Medicine; Visit Provider Nurse Practitioner Adult Health | DX: G43.109 Migraine with aura, not intractable, without status migrainosus (principal); G30.9 Alzheimer's disease, unspecified; F02.80 Dementia in other diseases classified elsewhere, unspecified severity, without behavioral disturbance, psychotic disturbance, mood disturbance, and anxiety | CPT/HCPCS: 99215 ==